=== PATIENT | male | born 1950 | race Caucasian/White ===

== ENCOUNTER 2017-03-06 11:39 | Inpatient (IN) | payer MEDICARE ==
[~2017-03-06] VITALS: Ht 182.9 cm; Wt 101.0 kg
[2017-03-06 12:22] LABS: HEMOGLOBIN 16.1 gm/dl (14.0-17.5); RED BLOOD COUNT 5.35 M/UL (4.20-5.50)
[2017-03-06 12:49] LABS: BUN/CREATININE RATIO 17 (0-10)
[2017-03-06 16:46] LABS: CRYPTOCOCCUS NEOFORMANS/GATTII Not Detected (Negative); CYTOMEGALOVIRUS Not Detected (Negative); ENTEROVIRUS Not Detected (Negative); ESCHERICHIA COLI K1 Not Detected (Negative); HERPES SIMPLEX VIRUS 1 Not Detected (Negative); HERPES SIMPLEX VIRUS 2 Not Detected (Negative); HUMAN HERPESVIRUS 6 Not Detected (Negative); HUMAN PARECHOVIRUS Not Detected (Negative); LISTERIA MONOCYTOGENES Not Detected (Negative); NEISERRIA MENINGITIDIS Not Detected (Negative); STREPTOCOCCUS AGALACTIAE Not Detected (Negative); STREPTOCOCCUS PNEUMONIAE Not Detected (Negative); VARICELLA ZOSTER VIRUS Not Detected (Negative)
[2017-03-06 17:22] LABS: GLUCOSE,CSF 63 mg/dL (50-80); TOTAL PROTEIN,CSF 33 mg/dL (20-45)
[2017-03-06 18:08] LABS: HAEMOPHILUS INFLUENZAE DETECTED (Negative)
[2017-03-06] MEDS ORDERED: NORVASC5 MG PO (21:55)
[2017-03-06] MEDS ORDERED: BENAZEPRIL HCL20 MG PO (21:56)
[2017-03-06] MEDS ORDERED: CARDURA 2MG TAB2 MG PO (21:56)
[2017-03-06] MEDS ORDERED: SYNTHROID 125125 MCG PO (21:57)
[2017-03-06] MEDS ORDERED: PRAVACHOL20 MG PO (21:58)
[2017-03-07 04:21] LABS: HEMOGLOBIN 14.4 gm/dl (14.0-17.5); RED BLOOD COUNT 4.89 M/UL (4.20-5.50)
[2017-03-07 04:27] LABS: WHITE BLOOD COUNT 6.8 K/UL (4.5-11.0)
[2017-03-07 04:40] LABS: BUN/CREATININE RATIO 19 (0-10)
[2017-03-07 18:35] LABS: HEMOGLOBIN 13.9 gm/dl (14.0-17.5); RED BLOOD COUNT 4.68 M/UL (4.20-5.50)
[2017-03-07 18:52] LABS: BUN/CREATININE RATIO 21 (0-10)
[2017-03-08 04:50] LABS: HEMOGLOBIN 13.7 gm/dl (14.0-17.5); RED BLOOD COUNT 4.66 M/UL (4.20-5.50); WHITE BLOOD COUNT 8.2 K/UL (4.5-11.0)
[2017-03-08 05:16] LABS: BUN/CREATININE RATIO 20 (0-10)
[2017-03-08] MEDS ORDERED: TYLENOL 325MG325 MG PO (15:43)
== END 2017-03-08 15:53 | disposition home or self-care (01) | DRG 866 ==
LOC: ER1 11:39 → ZEROF 17:45 → PROG CARE 17:45 → MED SURG 4 03-07 17:36
PROVIDERS: Emergency Medicine; Internal Medicine Infectious Disease; ADMIT Internal Medicine
PROC: 009U3ZX Drainage of Spinal Canal, Percutaneous Approach, Diagnostic (ICD-10-PCS; principal; 2017-03-06)
PROC: B01BZZZ Fluoroscopy of Spinal Cord (ICD-10-PCS; 2017-03-06)
DX: B34.9 Viral infection, unspecified (principal); I10 Essential (primary) hypertension; E03.9 Hypothyroidism, unspecified; E78.5 Hyperlipidemia, unspecified; R51 Headache; M43.17 Spondylolisthesis, lumbosacral region; N40.0 Benign prostatic hyperplasia without lower urinary tract symptoms; R73.9 Hyperglycemia, unspecified; T38.0X5A Adverse effect of glucocorticoids and synthetic analogues, initial encounter; Z79.2 Long term (current) use of antibiotics; Z79.899 Other long term (current) drug therapy
CPT/HCPCS: 36415; 70450; 71010; 72131; 80048; 80053; 81001; 82550; 82553; 82945; 83605; 83735; 83874; 84157; 84484; 85025; 85610; 85730; 87040; 87070; 87205; 87483; 89051; 93005; 96361; 96374; 96375; 96376; 99285; J0696; J1100; J1956; J2270; J2405; J7030; J7050

== ENCOUNTER → 2021-04-13 | Outpatient (CLI) | payer MEDICARE ==
[~2021-04-13] MED LIST: BENAZEPRIL HCL20 MG PO; CARDURA 2MG TAB2 MG PO; NORVASC5 MG PO; PRAVACHOL20 MG PO; SYNTHROID 125125 MCG PO; TYLENOL 325MG325 MG PO
== END ==
LOC: US 08:47
DX: K76.0 Fatty (change of) liver, not elsewhere classified (principal); K82.4 Cholesterolosis of gallbladder
CPT/HCPCS: 76700

== ENCOUNTER → 2021-11-02 | Outpatient (CLI) | payer MEDICARE | LOC: KOH-I 10-29 09:45 | DX: B19.10 Unspecified viral hepatitis B without hepatic coma (principal); R16.0 Hepatomegaly, not elsewhere classified; I71.4 Abdominal aortic aneurysm, without rupture | CPT/HCPCS: 76700 ==

== ENCOUNTER → 2022-04-21 | Outpatient (CLI) | payer MEDICARE | LOC: KOH-I 08:18 | DX: K82.4 Cholesterolosis of gallbladder (principal) | CPT/HCPCS: 76705 ==